=== PATIENT | female | born 1955 | race Caucasian/White ===

== ENCOUNTER 2024-10-02 15:22 | Emergency (ER) | payer MEDICARE ==
[~2024-10-02] VITALS: Ht 172.7 cm; Wt 71.2 kg
[2024-10-02 15:24] VITALS: BP 136/68; PULSE 89; RESP 16; TEMP 98; O2SAT 98
== END 2024-10-02 16:27 | disposition home or self-care (01) ==
LOC: ER 15:24
DX: M25.571 Pain in right ankle and joints of right foot (principal); X50.1XXA Overexertion from prolonged static or awkward postures, initial encounter; Y93.89 Activity, other specified; Y92.89 Other specified places as the place of occurrence of the external cause; Y99.8 Other external cause status
CPT/HCPCS: 29540; 73610; 99283; L4360

== ENCOUNTER 2025-03-17 16:30 | Emergency (ER) | payer MEDICARE, MEDICAID ==
[~2025-03-17] VITALS: Ht 172.7 cm; Wt 72.0 kg
[2025-03-17 16:35] VITALS: BP 142/62; PULSE 81; RESP 18; TEMP 97.9; O2SAT 97
[2025-03-17] MEDS ORDERED: AMOX-117 PO (16:45)
--- NOTE | 2025-03-17 16:45 | Physician Documentation ---
History of Present Illness ~ Chief Complaint: Bite-animal Stated Complaint: CAT BITE Time Seen by MD: 16:39 HPI 70-year-old female presents to the ED with a complaint of a cat bite on her right index finger last two days. denies any fever denies any nausea vomiting Day of Onset: Mar 17, 2025 Tetanus within 5 years?: Yes Medication Reconciliation Allergies: Coded Allergies: amoxicillin (Unverified Allergy, Mild, hives, 03/17/25) clavulanic acid (Unverified Allergy, Mild, hives, 03/17/25) Scheduled Clindamycin HCl (Cleocin HCl), 1 CAP PO Q8H Past Medical History Past Medical History: No Pertinent History Review of Systems All Other Systems at this time: Reviewed and Negative ROS As stated above in the HPI, otherwise all systems are reviewed and negative. Physical Exam Vital Signs: Temperature: 97.9, Source: Temporal, Heart Rate: 81, Respiratory Rate: 18, BP: 142/62, Pulse Oximetry: 97, Weight: 72.000 Oxygen Flow Rate: 0 Physical Exam General: Alert, no apparent distress. Extremities:. right index erythema clara two punctures no drainagfe, NORmal ROM , no cuseform swelling Neurologic: Oriented x4. Psychiatric: Normal mood and affect. Skin: Normal color, warm and dry. No edema, no ecchymosis. Progress Results/Orders Results/Orders Completed Orders - HIMA GÓMEZ [employer] Clindamycin Capsule (Cleocin Capsule) (03/17/25 17:05) Vital Signs 03/17/25 16:35 Temp 97.9 Pulse 81 Resp 18 B/P (MAP) 142/62 Pulse Ox 97 O2 Flow Rate 0 Medical Decision Making Findings Patient does not present with any signs or symptoms of tenosynovitis, do suspect a developing infection secondary to cat bite. Starting Antoine have her return to the ED in 1-2 days Differential Dx:Considerations: Include: Abrasion, Allergic reaction, Anaphylaxis, Cellulitis, Contusion, Fracture, Hematoma, Insect envenomation, Laceration, Neurovascular injury, Punture wound, Retained foreign body, Urticaria, Other Departure Disposition: 01 HOME / SELF CARE / HOMELESS Impression: Primary Impression: Cat bite Condition: Stable Discharge Instructions: Animal Bite, Adult Referrals: NO PRIMARY CARE PROVIDER (PCP) Prescriptions Clindamycin HCl (Cleocin HCl) 300 Mg Capsule 1 CAP PO Q8H for 10 Days, #30 CAP Prov: HIMA GÓMEZ NP 03/17/25 Education Educated: Patient Signature Scribe Signature: f Attestation: Scribed for Hima Gómez Np by Hima Wheeler NP . 03/17/25 17:05 HIMA GÓMEZ NP Mar 17, 2025 16:45
[2025-03-17] MEDS ORDERED: amox tr/potassium clavulanate 875/125mg TAB PO ONE (16:50)
[2025-03-17] MEDS ORDERED: CLIN300C3 PO (17:04)
== END 2025-03-17 17:32 | disposition home or self-care (01) ==
LOC: ER 16:31
DX: S61.251A Open bite of left index finger without damage to nail, initial encounter (principal); Z88.0 Allergy status to penicillin; W55.01XA Bitten by cat, initial encounter; Y93.89 Activity, other specified; Y92.89 Other specified places as the place of occurrence of the external cause; Y99.8 Other external cause status
CPT/HCPCS: 99283